=== PATIENT | male | born 1950 | race Caucasian/White ===

== ENCOUNTER → 2022-04-19 13:06 | Outpatient (BNVA) | payer MEDICARE, BC, SELFPAY | PROVIDERS: PCP Family Medicine; Visit Provider Family Medicine | DX: R53.83 Other fatigue (principal); G43.709 Chronic migraine without aura, not intractable, without status migrainosus; K21.9 Gastro-esophageal reflux disease without esophagitis; E78.5 Hyperlipidemia, unspecified; W57.XXXA Bitten or stung by nonvenomous insect and other nonvenomous arthropods, initial encounter; G47.00 Insomnia, unspecified | CPT/HCPCS: 80053; 82306; 82607; 83540; 84403; 84443; 85025; 86618; 86666; 86757 ==

== ENCOUNTER → 2023-04-25 13:19 | Outpatient (BNVA) | payer MEDICARE, BC, SELFPAY | PROVIDERS: PCP Family Medicine; Visit Provider Family Medicine | DX: G43.709 Chronic migraine without aura, not intractable, without status migrainosus (principal); R53.83 Other fatigue; T14.8XXA Other injury of unspecified body region, initial encounter; W57.XXXA Bitten or stung by nonvenomous insect and other nonvenomous arthropods, initial encounter | CPT/HCPCS: 86618; 86666; 86757 ==